=== PATIENT | male | born 1960 | race Caucasian/White ===

== ENCOUNTER 2018-10-16 17:34 | Emergency (ER) | payer OTHER ==
[~2018-10-16] VITALS: Ht 172.7 cm; Wt 95.2 kg
[2018-10-16] MEDS ORDERED: Keflex500 MG PO (19:09)
== END 2018-10-16 19:15 | disposition home or self-care (01) ==
LOC: ER 17:34
DX: L72.9 Follicular cyst of the skin and subcutaneous tissue, unspecified (principal); L08.9 Local infection of the skin and subcutaneous tissue, unspecified
CPT/HCPCS: 10060; 99282-25